=== PATIENT | male | born 1970 | race African-American/Black ===

== ENCOUNTER 2017-09-18 08:03 | Emergency (ER) | payer MEDICAID ==
[~2017-09-18] VITALS: Ht 175.3 cm; Wt 80.0 kg
[2017-09-18] MEDS ORDERED: HYDROCODONE/ACETAMINOPHEN 5/325MG TABLET PO ONE (08:30)
[2017-09-18] MEDS ORDERED: TETANUS, DIPHTHERIA, PERTUSSIS VAC/PF 0.5ML (>7YR OLD) IM ONE (08:45)
[2017-09-18] MEDS ORDERED: BACITRACIN ZINC OINT UDPKT TOP ONE (08:45)
[2017-09-18] MEDS ORDERED: FLUORESCEIN SODIUM 1MG/STRIP LEFTEYE ONE (09:30)
[2017-09-18 10:36] VITALS: BP 125/81
== END 2017-09-18 10:41 | disposition home or self-care (01) ==
LOC: ER 08:13
DX: S02.2XXA Fracture of nasal bones, initial encounter for closed fracture (principal); S02.82XA Fracture of other specified skull and facial bones, left side, initial encounter for closed fracture; H05 Disorders of orbit; H10.9 Unspecified conjunctivitis; I10 Essential (primary) hypertension; E78.00 Pure hypercholesterolemia, unspecified; Z95.5 Presence of coronary angioplasty implant and graft; Y08.89XA Assault by other specified means, initial encounter; Y93.89 Activity, other specified; Y92.89 Other specified places as the place of occurrence of the external cause; Y99.8 Other external cause status
CPT/HCPCS: 70450; 70486; 73030; 74176; 90471; 90715; 99284; Z7610

== ENCOUNTER 2019-03-12 09:12 | Emergency (ER) | payer MEDICAID ==
[~2019-03-12] VITALS: Ht 175.3 cm; Wt 100.0 kg
[2019-03-12] MEDS ORDERED: SODIUM CHLORIDE 0.9% 1,000 ML IV ONE (09:24)
[2019-03-12] MEDS ORDERED: MORPHINE SULFATE 4 MG/ML CPJ (NOT FOR IM USE) IV STA (09:24)
[2019-03-12] MEDS ORDERED: ONDANSETRON HCL 4MG/2ML INJ IV STA (09:24)
[2019-03-12 09:49] LABS: BASOPHILS % 0.8 % (0.0-2.0); EOSINOPHILS % 1.1 % (0.0-5.0); HEMATOCRIT. 39.5 % (42.0-52.0); HEMOGLOBIN. 13.2 g/dL (14.0-18.0); LYMPHOCYTES % 35.4 % (20.0-50.0); MEAN CORPUSCULAR HEMOGLOBIN 28.6 pg (28.0-32.0); MEAN CORPUSCULAR VOLUME 85.7 fL (80.0-94.0); MEAN PLATELET VOLUME 6.9 fl (7.4-10.4); MONOCYTES % 8.7 % (2.0-8.0); PLATELET 263 x1000/uL (130-400); RED BLOOD CELL COUNT 4.61 mill/uL (4.7-6.1); RED CELL DISTRIBUTION WIDTH 14.3 % (11.6-14.6)
[2019-03-12 09:56] LABS: CHLORIDE 108 mEq/L (98-107)
[2019-03-12 10:00] LABS: ETHANOL BLOOD < 10 mg/dL
[2019-03-12 10:04] LABS: CREATINE KINASE 294 IU/L (39-308)
[2019-03-12 10:07] LABS: CREATINE KINASE MB FRACTION 1.7 ng/mL (0.5-3.6)
[2019-03-12] MEDS ORDERED: CLOPIDOGREL 75MG TABLET PO ONE (10:15)
[2019-03-12 11:58] LABS: *AMPHETAMINES SCREEN URINE NEGATIVE (NEGATIVE); *BARBITURATES SCREEN URINE NEGATIVE (NEGATIVE); *BENZODIAZEPINES SCREEN URINE NEGATIVE (NEGATIVE); *COCAINE SCREEN URINE NEGATIVE (NEGATIVE); CANNABINOID URINE SCREEN NEGATIVE (NEGATIVE); METHADONE URINE SCREEN NEGATIVE (NEGATIVE); OPIATES URINE SCREEN PRESUMTIVE POSITIVE (NEGATIVE); PHENCYCLIDINE URINE SCREEN PRESUMTIVE POSITIVE (NEGATIVE)
[2019-03-13 08:17] VITALS: BP 135/84
== END 2019-03-13 08:34 | disposition home or self-care (01) ==
LOC: ER 09:12
DX: M79.18 Myalgia, other site (principal); I11.9 Hypertensive heart disease without heart failure; E11.9 Type 2 diabetes mellitus without complications; Z79.899 Other long term (current) drug therapy; E87.8 Other disorders of electrolyte and fluid balance, not elsewhere classified
CPT/HCPCS: 36415; 71045; 80053; 80305; 80320; 82550; 82553; 83690; 83880; 84484; 85025; 93005; 96374; 96375; 99284; J2270; J2405; J7030; G0480

== ENCOUNTER 2019-04-26 07:53 | Emergency (ER) | payer MEDICAID ==
[~2019-04-26] VITALS: Ht 162.6 cm; Wt 100.0 kg
[2019-04-26] MEDS ORDERED: ONDANSETRON HCL 4MG/2ML INJ IV STA (08:11)
[2019-04-26] MEDS ORDERED: MORPHINE SULFATE 4 MG/ML CPJ (NOT FOR IM USE) IV STA (08:11)
[2019-04-26 08:47] LABS: HEMATOCRIT. 41.2 % (42.0-52.0); HEMOGLOBIN. 13.7 g/dL (14.0-18.0); MEAN CORPUSCULAR HEMOGLOBIN 28.9 pg (28.0-32.0); MEAN CORPUSCULAR VOLUME 87.2 fL (80.0-94.0); MEAN PLATELET VOLUME 6.9 fl (7.4-10.4); PLATELET 285 x1000/uL (130-400); RED BLOOD CELL COUNT 4.72 mill/uL (4.7-6.1); RED CELL DISTRIBUTION WIDTH 14.4 % (11.6-14.6)
[2019-04-26 08:50] LABS: CHLORIDE 108 mEq/L (98-107)
[2019-04-26 09:28] LABS: PLATELET ESTIMATE NORMAL
[2019-04-26 11:06] LABS: CLARITY URINE CLEAR (CLEAR); KETONES URINE NEGATIVE (NEGATIVE); LEUKOCYTE ESTERASE URINE NEGATIVE (NEGATIVE); NITRITE URINE NEGATIVE (NEGATIVE); OCCULT BLOOD URINE TRACE (NEGATIVE); PH URINE 6.5 (4.5-8.0); PROTEIN URINE NEGATIVE (NEGATIVE); SPECIFIC GRAVITY URINE 1.007 (1.005-1.030); UROBILINOGEN URINE 0.2 E.U./dL (0.2-1.0)
[2019-04-26 11:12] LABS: COLOR URINE PALE YELLOW (YELLOW)
[2019-04-26] MEDS ORDERED: KETOROLAC 30MG/ML VIAL IV ONE (12:00)
[2019-04-26 12:51] VITALS: BP 127/72
== END 2019-04-26 13:00 | disposition home or self-care (01) ==
LOC: ER 07:53
DX: R10.31 Right lower quadrant pain (principal); R19.7 Diarrhea, unspecified; I10 Essential (primary) hypertension; R16.0 Hepatomegaly, not elsewhere classified; K57.30 Diverticulosis of large intestine without perforation or abscess without bleeding; I25.10 Atherosclerotic heart disease of native coronary artery without angina pectoris; E11.9 Type 2 diabetes mellitus without complications; I25.2 Old myocardial infarction
CPT/HCPCS: 36415; 74176; 80053; 81003; 83690; 85025; 85610; 96374; 96375; 99284; J1885; J2270; J2405

== ENCOUNTER 2019-05-12 00:56 | Emergency (ER) | payer MEDICAID ==
[~2019-05-12] VITALS: Ht 170.2 cm; Wt 100.0 kg
[2019-05-12] MEDS ORDERED: ASPIRIN 81MG TABLET PO ONE (02:30)
[2019-05-12] MEDS ORDERED: NITROGLYCERIN 0.4MG TABLET SL SL PRN (02:30)
[2019-05-12 03:21] LABS: CHLORIDE 108 mEq/L (98-107)
[2019-05-12 03:23] LABS: BASOPHILS % 1.2 % (0.0-2.0); EOSINOPHILS % 0.8 % (0.0-5.0); HEMATOCRIT. 41.5 % (42.0-52.0); LYMPHOCYTES % 41.8 % (20.0-50.0); MEAN CORPUSCULAR VOLUME 85.8 fL (80.0-94.0); MEAN PLATELET VOLUME 6.9 fl (7.4-10.4); MONOCYTES % 10.1 % (2.0-8.0); NEUTROPHILS % 46.1 % (40.0-76.0); PLATELET 344 x1000/uL (130-400); RED BLOOD CELL COUNT 4.84 mill/uL (4.7-6.1); RED CELL DISTRIBUTION WIDTH 13.7 % (11.6-14.6)
[2019-05-12 06:00] VITALS: BP 106/54
== END 2019-05-12 06:00 | disposition home or self-care (01) ==
LOC: ER 00:56
DX: R07.89 Other chest pain (principal); I10 Essential (primary) hypertension; I25.2 Old myocardial infarction; Z95.5 Presence of coronary angioplasty implant and graft; Z59.0 Homelessness
CPT/HCPCS: 36415; 71045; 80053; 83880; 84484; 85025; 93005; 99284; Z7610

== ENCOUNTER 2019-05-12 07:26 | Emergency (ER) | payer MEDICAID ==
[~2019-05-12] VITALS: Ht 162.6 cm; Wt 91.0 kg
[2019-05-12] MEDS ORDERED: IBUPROFEN 600MG TABLET PO STA (09:13)
[2019-05-12 09:42] LABS: *AMPHETAMINES SCREEN URINE NEGATIVE (NEGATIVE); *BARBITURATES SCREEN URINE NEGATIVE (NEGATIVE)
[2019-05-12 09:43] LABS: *BENZODIAZEPINES SCREEN URINE NEGATIVE (NEGATIVE); *COCAINE SCREEN URINE NEGATIVE (NEGATIVE); CANNABINOID URINE SCREEN NEGATIVE (NEGATIVE); METHADONE URINE SCREEN NEGATIVE (NEGATIVE); OPIATES URINE SCREEN NEGATIVE (NEGATIVE); PHENCYCLIDINE URINE SCREEN PRESUMTIVE POSITIVE (NEGATIVE)
[2019-05-12 12:41] VITALS: BP 150/80
== END 2019-05-12 12:42 | disposition home or self-care (01) ==
LOC: ER 07:26
DX: M54.5 Low back pain (principal); L25.9 Unspecified contact dermatitis, unspecified cause; L03.811 Cellulitis of head [any part, except face]; L03.221 Cellulitis of neck
CPT/HCPCS: 80305; 99283